=== PATIENT | female | born 1985 ===

== ENCOUNTER 2021-07-20 07:03 | Day surgery (SDC) | payer OTHER ==
[~2021-07-20 07:03] MED LIST: AYGESTIN5 MG PO; COZAAR100 MG PO; DILTIAZEM ER180 M3 PO; LEVO-T88 MCG PO; MAGNESIUM500 MG PO
== END 2021-07-20 19:30 | disposition home or self-care (01) ==
LOC: CIR.AMB 07:03
PROVIDERS: ATTEND Obstetrics & Gynecology Gynecologic Oncology
DX: N80.1 Endometriosis of ovary (principal); Z20.822 Contact with and (suspected) exposure to COVID-19